=== PATIENT | male | born 1985 | race African-American/Black ===

== ENCOUNTER 2017-12-03 14:51 | Emergency (ER) | payer SELFPAY ==
[~2017-12-03] VITALS: Ht 182.9 cm; Wt 98.0 kg
[2017-12-03 14:57] VITALS: BP 137/81
== END 2017-12-03 18:09 | disposition left against medical advice (07) ==
LOC: ER 16:09
DX: H57.8 Other specified disorders of eye and adnexa (principal); Z53.21 Procedure and treatment not carried out due to patient leaving prior to being seen by health care provider